=== PATIENT | male | born 1960 | race Caucasian/White ===

== ENCOUNTER 2017-11-21 17:44 | Inpatient (IN) | payer MEDICAID, OTHER, SELFPAY ==
[~2017-11-21] VITALS: Ht 177.8 cm; Wt 99.6 kg
[2017-11-21] MEDS ORDERED: VENL-193 PO (18:41)
[2017-11-21] MEDS ORDERED: OLAN5TAB2 PO (18:41)
[2017-11-21 19:11] LABS: BASOPHILS % (AUTO) 1.1 % (0.0-2.0); EOSINOPHILS % (AUTO) 1.3 % (1.0-6.0); HEMATOCRIT 39.8 % (41-53); HEMOGLOBIN 13.3 g/dL (13.5-17.5); LYMPHOCYTES # (AUTO) 2.5 K/uL (1.0-4.8); LYMPHOCYTES % (AUTO) 29.6 % (22.0-44.0); MEAN CORPUSCULAR HEMOGLOBIN 27.2 pg (26.0-34.0); MEAN CORPUSCULAR HGB CONC 33.4 G/dL (31.0-37.0); MEAN CORPUSCULAR VOLUME 82 fL (80-100); MONOCYTES # (AUTO) 0.6 K/uL (0.1-1.0); MONOCYTES % (AUTO) 6.9 % (2.0-9.0); NEUTROPHILS # (AUTO) 5.2 K/uL (1.8-7.7); NEUTROPHILS % (AUTO) 61.1 % (40.0-70.0); PLATELET COUNT (AUTO) 181 K/uL (150-450); RED BLOOD CELL COUNT(AUTO) 4.88 MIL/uL (4.50-5.90)
[2017-11-21 19:21] LABS: ANION GAP 8 mmol/L (8-16); CALCIUM, TOTAL 9.5 mg/dL (8.8-10.5); CARBON DIOXIDE 29 mmol/L (22-29); CHLORIDE 104 mmol/L (98-107); CREATININE 0.63 mg/dL (0.60-1.30); GLOMERULAR FILTR. RATE CALC > 60 mL/min (>60); GLUCOSE,RANDOM 98 mg/dL (70-110); SODIUM SERUM 141 mmol/L (136-145); UREA NITROGEN, BLOOD 17 mg/dL (7-18)
[2017-11-21 19:27] LABS: ALANINE AMINOTRANSFERASE 23 U/L (12-78); ALBUMIN 3.7 g/dL (3.4-5.0); ALKALINE PHOSPHATASE 106 U/L (46-116); ASPARTATE AMINOTRANSFERASE 17 U/L (15-37); BILIRUBIN,TOTAL 0.2 mg/dL (0.1-1.0); TOTAL PROTEIN, SERUM 7.9 g/dL (6.4-8.2)
[2017-11-21 19:27] LABS: AMPHET/METH SCREEN,URINE NEGATIVE (NEGATIVE); BARBITURATE SCREEN, URINE NEGATIVE (NEGATIVE); BENZODIAZEPINES SCREEN,URINE NEGATIVE (NEGATIVE); CANNABINOID SCREEN,URINE NEGATIVE (NEGATIVE); COCAINE SCREEN,URINE NEGATIVE (NEGATIVE); METHADONE SCREEN, URINE NEGATIVE (NEGATIVE); OPIATE SCREEN,URINE NEGATIVE (NEGATIVE)
[2017-11-21 19:29] LABS: PHENCYCLIDINE SCREEN,URINE NEGATIVE (NEGATIVE)
[2017-11-21] MEDS ORDERED: ZOLPIDEM TARTRATE 10 MG TABLET PO PRN (20:45)
[2017-11-21] MEDS ORDERED: HALOPERIDOL 5 MG TABLET PO PRN (20:45)
[2017-11-22 04:59] LABS: CHOL/HDL RATIO 4.5 (4.2-7.3); CHOLESTEROL 181 mg/dL (131-200); HDL CHOLESTEROL 40 mg/dL (40-60); LDL CHOL (CALC.) 122 mg/dL (0-130); TRIGLYCERIDES 93 mg/dL (15-150)
[2017-11-22 13:12] VITALS: BP 118/65
[2017-11-22] MEDS: LORazepam 2 MG TABLET PO PRN (13:23)
[2017-11-22] MEDS: NICOTINE 21 MG/24 HOUR PATCH TD SCH (15:08)
[2017-11-22] MEDS: IPRATROPIUM BROMIDE HFA 17 MCG/PUFF 12.9 GM INHALER IH SCH (16:51)
[2017-11-22] MEDS: BACITRACIN 28.4 GM OINTMENT TP SCH (16:51)
[2017-11-22 17:29] VITALS: BP 116/67
[2017-11-22] MEDS: OLANZapine 5 MG TABLET PO SCH (20:56)
[2017-11-23] MEDS ORDERED: VENLAFAXINE HCL 75 MG ER CAPSULE PO SCH (09:00)
[2017-11-23 09:32] VITALS: BP 107/72
[2017-11-23] MEDS: BACITRACIN 28.4 GM OINTMENT TP SCH ×2 (10:21→16:17)
[2017-11-23] MEDS: NICOTINE 21 MG/24 HOUR PATCH TD SCH (10:21)
[2017-11-23] MEDS: VENLAFAXINE HCL 75 MG ER CAPSULE PO SCH (10:21)
[2017-11-23] MEDS: IPRATROPIUM BROMIDE HFA 17 MCG/PUFF 12.9 GM INHALER IH SCH ×2 (10:22→16:18)
[2017-11-23 16:57] VITALS: BP 131/81
[2017-11-23] MEDS: OLANZapine 5 MG TABLET PO SCH (20:21)
[2017-11-24 09:30] VITALS: BP 109/76
[2017-11-24] MEDS: IPRATROPIUM BROMIDE HFA 17 MCG/PUFF 12.9 GM INHALER IH SCH ×2 (11:10→16:28)
[2017-11-24] MEDS: VENLAFAXINE HCL 75 MG ER CAPSULE PO SCH (11:10)
[2017-11-24] MEDS: NICOTINE 21 MG/24 HOUR PATCH TD SCH (11:10)
[2017-11-24] MEDS: BACITRACIN 28.4 GM OINTMENT TP SCH ×2 (11:10→16:28)
[2017-11-24] MEDS ORDERED: MAGNESIUM CITRATE 300 ML ORAL SOLUTION PO PRN (11:45)
[2017-11-24] MEDS ORDERED: MAGNESIUM HYDROXIDE SUSPENSION 30 ML UDCUP PO PRN (11:45)
[2017-11-24 17:30] VITALS: BP 108/74
[2017-11-24] MEDS: OLANZapine 5 MG TABLET PO SCH (20:27)
[2017-11-25 09:26] VITALS: BP 109/64
[2017-11-25] MEDS: VENLAFAXINE HCL 150 MG ER CAPSULE PO SCH (09:56)
[2017-11-25] MEDS: IPRATROPIUM BROMIDE HFA 17 MCG/PUFF 12.9 GM INHALER IH SCH ×2 (09:57→17:18)
[2017-11-25] MEDS: NICOTINE 21 MG/24 HOUR PATCH TD SCH (09:57)
[2017-11-25] MEDS: BACITRACIN 28.4 GM OINTMENT TP SCH ×2 (09:58→17:19)
[2017-11-25 17:07] VITALS: BP 100/64
[2017-11-25] MEDS: OLANZapine 5 MG TABLET PO SCH (20:35)
[2017-11-26 09:08] VITALS: BP 139/75
[2017-11-26] MEDS: IPRATROPIUM BROMIDE HFA 17 MCG/PUFF 12.9 GM INHALER IH SCH ×2 (09:30→17:32)
[2017-11-26] MEDS: NICOTINE 21 MG/24 HOUR PATCH TD SCH (09:31)
[2017-11-26] MEDS: BACITRACIN 28.4 GM OINTMENT TP SCH ×2 (09:31→17:32)
[2017-11-26] MEDS: VENLAFAXINE HCL 150 MG ER CAPSULE PO SCH (09:31)
[2017-11-26] MEDS: OLANZapine 5 MG TABLET PO SCH (20:52)
[2017-11-26 22:44] VITALS: BP 122/77
[2017-11-27] MEDS: NICOTINE 21 MG/24 HOUR PATCH TD SCH (09:31)
[2017-11-27] MEDS: BACITRACIN 28.4 GM OINTMENT TP SCH ×2 (09:31→16:33)
[2017-11-27] MEDS: VENLAFAXINE HCL 150 MG ER CAPSULE PO SCH (09:31)
[2017-11-27] MEDS: IPRATROPIUM BROMIDE HFA 17 MCG/PUFF 12.9 GM INHALER IH SCH ×2 (09:31→16:33)
[2017-11-27 13:38] VITALS: BP 115/91
[2017-11-27 18:46] VITALS: BP 142/79
[2017-11-27] MEDS: LORazepam 2 MG TABLET PO PRN (20:10)
[2017-11-27] MEDS: OLANZapine 5 MG TABLET PO SCH (20:10)
[2017-11-28 08:49] VITALS: BP 143/75
[2017-11-28] MEDS: IPRATROPIUM BROMIDE HFA 17 MCG/PUFF 12.9 GM INHALER IH SCH ×2 (09:06→17:39)
[2017-11-28] MEDS: NICOTINE 21 MG/24 HOUR PATCH TD SCH (09:06)
[2017-11-28] MEDS: VENLAFAXINE HCL 150 MG ER CAPSULE PO SCH (09:06)
[2017-11-28] MEDS: BACITRACIN 28.4 GM OINTMENT TP SCH ×2 (09:07→17:39)
[2017-11-28] MEDS: LORazepam 2 MG TABLET PO PRN (19:46)
[2017-11-28 19:58] VITALS: BP 140/78
[2017-11-28] MEDS: OLANZapine 5 MG TABLET PO SCH (20:41)
[2017-11-29 09:00] VITALS: BP 126/86
[2017-11-29] MEDS: IPRATROPIUM BROMIDE HFA 17 MCG/PUFF 12.9 GM INHALER IH SCH ×2 (10:55→16:10)
[2017-11-29] MEDS: BACITRACIN 28.4 GM OINTMENT TP SCH ×2 (10:55→16:10)
[2017-11-29] MEDS: NICOTINE 21 MG/24 HOUR PATCH TD SCH (10:55)
[2017-11-29] MEDS: VENLAFAXINE HCL 150 MG ER CAPSULE PO SCH (10:55)
[2017-11-29] MEDS ORDERED: BACI120O TP (13:00)
[2017-11-29] MEDS ORDERED: IPRAHFA IH (13:01)
[2017-11-29 19:00] VITALS: BP 128/76
== END 2017-11-29 18:30 | disposition home or self-care (01) | DRG 751 ==
LOC: EMS 17:46 → AHU 11-22 07:17 → 3EI 11-22 12:34
PROVIDERS: ADMIT Psychiatry & Neurology Child & Adolescent Psychiatry; ATTEND Psychiatry & Neurology Child & Adolescent Psychiatry
DX: F33.2 Major depressive disorder, recurrent severe without psychotic features (principal); R45.851 Suicidal ideations; J44.9 Chronic obstructive pulmonary disease, unspecified; F10.20 Alcohol dependence, uncomplicated; I25.10 Atherosclerotic heart disease of native coronary artery without angina pectoris; M19.90 Unspecified osteoarthritis, unspecified site; F17.210 Nicotine dependence, cigarettes, uncomplicated; Z59.0 Homelessness; Z88.8 Allergy status to other drugs, medicaments and biological substances; Z79.899 Other long term (current) drug therapy
CPT/HCPCS: 99285; G0480; J3535